=== PATIENT | male | born 1940 | race Caucasian/White ===

== ENCOUNTER → 2017-03-15 | Outpatient (CLI) | payer OTHER | END | disposition home or self-care (01) | LOC: PCVCCLINIC 10:58 | PROVIDERS: ATTEND Internal Medicine Cardiovascular Disease | DX: I48.91 Unspecified atrial fibrillation (principal); I25.10 Atherosclerotic heart disease of native coronary artery without angina pectoris; I10 Essential (primary) hypertension; K21.9 Gastro-esophageal reflux disease without esophagitis; I44.0 Atrioventricular block, first degree; E78.5 Hyperlipidemia, unspecified; Z79.82 Long term (current) use of aspirin; Z95.1 Presence of aortocoronary bypass graft; Z87.891 Personal history of nicotine dependence | CPT/HCPCS: 36415; 93005; G0463 ==

== ENCOUNTER → 2017-09-27 | Outpatient (CLI) | payer OTHER | END | disposition home or self-care (01) | LOC: PCVCIMAG 08:07 | DX: I08.0 Rheumatic disorders of both mitral and aortic valves (principal); I25.10 Atherosclerotic heart disease of native coronary artery without angina pectoris; I10 Essential (primary) hypertension; E78.5 Hyperlipidemia, unspecified; I48.0 Paroxysmal atrial fibrillation; Z95.1 Presence of aortocoronary bypass graft; Z87.891 Personal history of nicotine dependence | CPT/HCPCS: 36415; 93005; 93306; G0463 ==

== ENCOUNTER → 2017-10-04 | Outpatient (CLI) | payer OTHER | END | disposition home or self-care (01) | LOC: PCVCCLINIC 08:50 | DX: I25.10 Atherosclerotic heart disease of native coronary artery without angina pectoris (principal); I10 Essential (primary) hypertension; E78.5 Hyperlipidemia, unspecified | CPT/HCPCS: 80061 ==

== ENCOUNTER → 2018-03-28 | Outpatient (CLI) | payer OTHER ==
[~2018-03-28] MED LIST: REGADENOSON 0.4 MG/5 ML DISP.SYRIN. IV ONE
--- NOTE | 2018-03-28 13:12 | PCVCIMAG ---
APPROVED REPORT Imaging Protocol: Rest Tc-99m/Stress Tc-99m 1 day Study performed: 03/28/2018 08:54:31 Indication: CAD, Chest Pain, PAF Patient Location: Out-Patient Stress Nurse: Tete Gallo RN NM Tech:Dejon Longoria NMTCB Ht: 5 ft 9 in Wt: 196 lbs BSA: 2.05 m2 HR: 45 bpm BP: 134/83 mmHg BMI: 28.94 Rhythm: SB, PAC's, First Degree AV Block Medical History Medical History: Age, Hyperlipidemia, HTN, Afib, CAD, [place], Former Smoker Medications: ASA, Atorvastatin, Zetia, Lisinopril Allergies: No known drug allergies Previous Cardiac Procedures: CABG 2017, Remote PCI Pretest Chest Pain Characteristics: No chest pain Resting Data Rest SPECT myocardial perfusion imaging was performed in supine position 45 minutes following the intravenous injection of 11.8 mCi of Tc-99m Sestamibi. Time of rest injection: 0800 Date: 03/28/2018 Administration Route: IV Administration Site: Right AC Pharmacologic Stress Pharmacologic stress test was performed by injecting Regadenoson 0.4 mg IV push over 10-15 seconds immediately followed by the intravenous injection of 33.4 mCi of Tc-99m Sestamibi. Time of stress injection: 929 Date: 03/28/2018 Administration Route: IV Administration Site: Right AC Gated Stress SPECT was performed 45 minutes after stress injection. The images were gated to evaluate regional wall motion and calculate left ventricular ejection fraction. Stress Test Details Stress Test: Pharmacologic stress testing performed using 0.4 mg of regadenoson per 5 mL given IV over 10 seconds. Reason for pharmacologic stress test: physical limitation. HRMax Heart Rate (APMHR): 145 bpm Resting HR: 45 bpmTarget HR (85% APMHR): 123 bpm Max HR Achieved: 81 bpm % of APMHR: 55 Recovery HR: 60 bpm BP Resting BP: 134/83 mmHg Recovery BP: 128/61 mmHg ECG Resting ECG: Marked Sinus Bradycardia, 1st degree AV block Stress ECG: Sinus Rhythm, 1st degree AV block ST Change: Non-ischemic Arrhythmia: PAC's Recovery ECG: Sinus Bradycardia, 1st degree AV block Clinical Reason for Termination: Completed protocol Stress Symptoms: Dyspnea, Lightheaded Exercise duration: min 55 sec Symptoms resolved with caffeine. Study Quality Study: Good Study Data Post stress, the left ventricular ejection was 70%.. SSS: 2 SRS: 2 SDS: 1 TID = 0.99. Perfusion There is a medium area of mildly reduced uptake in the basal and mid segment of the lateral wall which is seen on the stress images as well as the resting images. This area thickens and moves normally and is most consistent with myocardial scar. Wall Motion Normal left ventricular wall motion. Nuclear Conclusion ECG Findings: negative for ischemia Clinical Findings: non-diagnostic Nuclear Findings: positive for infarct Exercise Capacity: not assessed Left Ventricular Function: normal This study reveals a nontransmural infarct in the mid to basal lateral segment. This study is of low probability for inducible ischemia. There is normal global and segmental LV systolic function.
== END | disposition home or self-care (01) ==
LOC: PCVCIMAG 12:56
PROVIDERS: ATTEND Internal Medicine Cardiovascular Disease
DX: I25.10 Atherosclerotic heart disease of native coronary artery without angina pectoris (principal); I48.0 Paroxysmal atrial fibrillation; E78.5 Hyperlipidemia, unspecified; I10 Essential (primary) hypertension; Z87.891 Personal history of nicotine dependence
CPT/HCPCS: 78452; 93017; A9500; J2785

== ENCOUNTER → 2018-05-17 | Outpatient (CLI) | payer OTHER ==
--- NOTE | 2018-05-17 12:15 | PCVCIMAG ---
APPROVED REPORT Laterality: Bilateral Indications Syncope Doppler Spectral Velocity Analysis PSV / EDVPSV / EDV ECA (R) 138 / 0 cm/sECA (L) 135 / 10 cm/s dICA (R) 65 / 10 cm/sdICA (L) 90 / 18 cm/s Gabriel (R) 87 / 12 cm/smICA (L) 100 / 19 cm/s pICA (R) 52 / 9 cm/spICA (L) 135 / 21 cm/s Bulb (R) 46 / 6 cm/sBulb (L) 63 / 11 cm/s dCCA (R) 55 / 4 cm/sdCCA (L) 53 / 9 cm/s mCCA (R) 82 / 10 cm/smCCA (L) 65 / 10 cm/s Vert (R) 55 / 6 cm/sVert (L) 48 / 11 cm/s ICA/CCA 1.58ICA/CCA 2.55 Findings The right carotid bulb has moderate calcified plaque. The right proximal internal carotid artery shows <40% stenosis. The right common carotid artery shows no significant stenosis. The right external carotid artery shows no significant stenosis. The left carotid bulb has moderate plaque. The left proximal internal carotid artery shows 40-50% stenosis. The left common carotid artery shows no significant stenosis. The left external carotid artery shows no significant stenosis. Conclusion 1. Right internal carotid artery stenosis (<40%) 2. Left internal carotid artery stenosis (40-50%) 3. Antegrade vertebral flow
== END | disposition home or self-care (01) ==
LOC: PCVCIMAG 11:37
PROVIDERS: ATTEND Internal Medicine Cardiovascular Disease
DX: I65.23 Occlusion and stenosis of bilateral carotid arteries (principal); R55 Syncope and collapse
CPT/HCPCS: 93880

== ENCOUNTER → 2018-11-15 | Outpatient (CLI) | payer OTHER ==
--- NOTE | 2018-11-15 10:48 | PCVCIMAG ---
APPROVED REPORT Study performed: 11/15/2018 08:57:21 EXAM: Comprehensive 2D, Doppler, and color-flow Echocardiogram Patient Location: Echo lab Status: routine BSA: 2.00 HR: 68 bpmBP: 124/70 mmHg Rhythm: NSR Other Information Study Quality: Adequate Risk Factors: Cardiac Risk Factors: HTN Indications CAD Syncope parox afib 2D Dimensions IVSd: 12.39 (7-11mm)LVOT Diam: 22.17 (18-24mm) LVDd: 46.99 mm PWd: 9.60 (7-11mm)Ascending Ao: 37.89 (22-36mm) LVDs: 33.37 (25-40mm) Left Atrium: 38.01 (27-40mm) Aortic Root: 37.37 mm LV Single Plane 4CH: 57.87 % LV Single Plane 2CH: 68.23 % Biplane EF: 63.5 % Volumes Left Atrial Volume (Systole) Single Plane 4CH: 62.51 mLSingle Plane 2CH: 89.97 mL LA ESV Index: 39.00 mL/m2 Aortic Valve AoV Peak Carlos.: 1.40 m/s AO Peak Gr.: 7.87 mmHgLVOT Max P.91 mmHg LVOT Max V: 1.11 m/s LEONARDO Vmax: 3.05 cm2 AI Vmax: 4.39 m/s AI [place]: 3.82 m/s2 AI PHT: 334.46 ms Mitral Valve E/A Ratio: 0.8 MV Decel. Time: 317.09 ms MV E Max Carlos.: 0.77 m/s MV A Carlos.: 0.98 m/s IVRT: 103.81 ms Pulmonary Valve PV Peak Carlos.: 0.85 m/sPV Peak Gr.: 2.92 mmHg Pulmonary Vein P Vein S: 0.29 m/sP Vein A: 0.32 m/s P Vein D: 0.61 m/sP Vein A Dur.: 107.3 msec P Vein S/D Ratio: 0.48 Tricuspid Valve TR Peak Carlos.: 2.63 m/s TR Peak Gr.: 27.75 mmHg Left Ventricle The left ventricle is normal size. Mid inferolateral hypokinesis. There is normal left ventricular wall thickness. Left ventricular systolic function is normal. LVEF is 55%. Grade I - abnormal relaxation pattern. Right Ventricle The right ventricle is normal size. The right ventricular systolic function is normal. Atria Left atrium is mildly dilated. The right atrium size is normal. Aortic Valve The aortic valve is normal in structure. Moderate aortic regurgitation. There is no aortic valvular stenosis. Mitral Valve The mitral valve is normal in structure. Mild mitral regurgitation. No evidence of mitral valve stenosis. Tricuspid Valve The tricuspid valve is normal in structure. Mild tricuspid regurgitation with PAP of 35 mmHg. Pulmonic Valve The pulmonary valve is normal in structure. There is no pulmonic valvular regurgitation. Great Vessels The aortic root is normal in size. IVC is normal in size and collapses >50% with inspiration. Pericardium There is no pericardial effusion. There is no pleural effusion. <Conclusion> The left ventricle is normal size. There is normal left ventricular wall thickness. Left ventricular systolic function is normal. Mid inferolateral hypokinesis. Grade I - abnormal relaxation pattern. The right ventricle is normal size. Left atrium is mildly dilated. Moderate aortic regurgitation. Mild mitral regurgitation. Mild tricuspid regurgitation with PAP of 35 mmHg.
== END | disposition home or self-care (01) ==
LOC: PCVCIMAG 09:05
PROVIDERS: ATTEND Internal Medicine Cardiovascular Disease
DX: I08.3 Combined rheumatic disorders of mitral, aortic and tricuspid valves (principal); I25.10 Atherosclerotic heart disease of native coronary artery without angina pectoris; I10 Essential (primary) hypertension; I48.0 Paroxysmal atrial fibrillation
CPT/HCPCS: 93306

== ENCOUNTER → 2018-11-21 | Outpatient (CLI) | payer OTHER | END | disposition home or self-care (01) | LOC: PCVCCLINIC 09:50 | PROVIDERS: ATTEND Internal Medicine Cardiovascular Disease | DX: E78.00 Pure hypercholesterolemia, unspecified (principal); E78.5 Hyperlipidemia, unspecified | CPT/HCPCS: 36415; 80061 ==

== ENCOUNTER → 2019-05-18 | Outpatient (CLI) | payer OTHER | END | disposition home or self-care (01) | LOC: PCVCCLINIC 10:30 | PROVIDERS: ATTEND Internal Medicine Cardiovascular Disease | DX: I25.10 Atherosclerotic heart disease of native coronary artery without angina pectoris (principal); I10 Essential (primary) hypertension; E78.00 Pure hypercholesterolemia, unspecified; R55 Syncope and collapse; K21.9 Gastro-esophageal reflux disease without esophagitis; E78.5 Hyperlipidemia, unspecified; Z87.891 Personal history of nicotine dependence | CPT/HCPCS: 93005; G0463 ==